=== PATIENT | female | born 1965 | race Caucasian/White ===

== ENCOUNTER 2022-12-30 15:58 | Day surgery (SDC) | payer OTHER ==
[2022-12-30] MEDS ORDERED: PIPERACILLIN/TAZOB 3.375 GM 3.375 GM in DEXTROSE 5%-WATER - 50 ML IVPB ONE (16:41)
[2022-12-30] MEDS ORDERED: PIPERACILLIN/TAZOBACTAM 3.375 GM VIAL IVPB ONE (16:46)
[2022-12-30 16:49] LABS: INR 1.15 (0.83-1.09); PROTHROMBIN TIME (PATIENT) 13.2 SEC (9.7-13.0)
[2022-12-30 16:51] LABS: ACTIVATED PTT 47.5 SECONDS (25.2-36.5)
[2022-12-30 16:55] LABS: ALBUMIN 4.1 g/dl (3.4-5.0); BILIRUBIN,TOTAL 0.5 mg/dl (0.2-1); CREATININE 0.7 mg/dl (0.55-1.3); TOT PROT 7.1 g/dl (6.4-8.2)
[2022-12-30] MEDS: DEXTROSE 5%-LACTATED RINGERS 1,000 ML IV SCH (17:04)
[2022-12-30 17:59] LABS: HEMATOCRIT 38.7 % (32.4-45.2); HEMOGLOBIN 12.7 GM/dL (10.7-15.3); MCH 28.5 pg (25.7-33.7); MCHC 32.9 g/dl (32.0-36.0); MEAN CELL VOLUME 86.7 fl (80-96); MEAN PLT VOLUME 9.8 fl (7.5-11.1); PLATELET COUNT 248 10^3/uL (134-434); RBC 4.47 M/mm3 (3.60-5.2); RDW 13.9 % (11.6-15.6); WHITE BLOOD COUNT 6.9 K/mm3 (4.0-10.0)
[2022-12-30 18:40] VITALS: BMI 25.2
[2022-12-30] MEDS ORDERED: ACETAMINOPHEN 1000 MG/100 ML BAG IVPB PRN (19:23)
[2022-12-31] MEDS ORDERED: BUPIVACAINE HCL 100 ML ONE (11:24)
[2022-12-31] MEDS: PIPERACILLIN/TAZOB 3.375 GM 3.375 GM in DEXTROSE 5%-WATER - 50 ML IVPB SCH ×2 (12:01→18:50)
[2022-12-31] MEDS ORDERED: PROPOFOL 20 ML ONE (13:07)
[2022-12-31] MEDS ORDERED: SUCCINYLCHOLINE CHLORIDE 200 MG/10 ML SYRINGE ONE (13:07)
[2022-12-31] MEDS ORDERED: MIDAZOLAM HCL 2 MG/2 ML SINGLE DOSE VIAL ONE (13:08)
[2022-12-31] MEDS ORDERED: BUPIVACAINE HCL/PF 2.5 MG/ML - 30 ML VIAL IJ ONE ×2 (14:08→14:46)
[2022-12-31] MEDS ORDERED: ROCURONIUM BROMIDE 50 MG/5 ML SYRINGE ONE (14:36)
[2022-12-31] MEDS ORDERED: HEPARIN NA (PORCINE) 5,000 UNITS/ML 1ML VIAL ONE (14:41)
[2022-12-31] MEDS ORDERED: DEXAMETHASONE SOD PHOSPHATE 4 MG/1 ML VIAL ONE (14:42)
[2022-12-31] MEDS ORDERED: ONDANSETRON 4 MG/2 ML VIAL ONE (14:42)
[2022-12-31] MEDS ORDERED: GLYCOPYRROLATE 0.2 MG/1 ML VIAL ONE ×3 (14:59→15:14)
[2022-12-31] MEDS ORDERED: NEOSTIGMINE METHYLSULFATE 0.5 MG/1 ML - 10 ML MDV ONE (14:59)
[2022-12-31] MEDS ORDERED: ONDANSETRON 4 MG/2 ML VIAL IVPUSH PRN (15:25)
[2022-12-31] MEDS ORDERED: LACTATED RINGERS SOLUTION 1,000 ML IV SCH (15:30)
[2022-12-31] MEDS: ACETAMINOPHEN 1000 MG/100 ML BAG IVPB ONE ×3 (15:35→16:30)
[2022-12-31] MEDS ORDERED: ACETAMINOPHEN INJECTION 100 ML IVPB ONE (15:35)
[2022-12-31 16:07] VITALS: RESP 16
[2022-12-31 16:29] VITALS: BP 110/59; PULSE 50; TEMP 97.5
[2022-12-31] MEDS: DEXTROSE 5%-LACTATED RINGERS 1,000 ML IV SCH (17:50)
== END 2022-12-31 18:55 | disposition home or self-care (01) ==
LOC: FER 15:58 → UNDOADMOB 16:41 → FM/S 16:41 → FASUSAT 12-31 17:10 → UNDODISOB 12-31 18:55
PROC: 0DTJ4ZZ Resection of Appendix, Percutaneous Endoscopic Approach (ICD-10-PCS; principal; 2022-12-31 14:35)
DX: K35.890 Other acute appendicitis without perforation or gangrene (principal); C50.911 Malignant neoplasm of unspecified site of right female breast; Z86.16 Personal history of COVID-19
CPT/HCPCS: 36415; 80053; 85027; 85610; 85730; 86850; 86900; 86901; 88304-TC; 94760; 99285-25; C9803-CS; G0378; J1644; U0003; U0005